=== PATIENT | female | born 1995 | race Hispanic/Latino ===

== ENCOUNTER 2020-04-24 10:44 | Emergency (ER) | payer OTHER | END 2020-04-24 11:47 | disposition home or self-care (01) | LOC: EDH 10:44 | DX: S16.1XXA Strain of muscle, fascia and tendon at neck level, initial encounter (principal); M54.5 Low back pain; V49.49XA Driver injured in collision with other motor vehicles in traffic accident, initial encounter; Y93.89 Activity, other specified; Y92.89 Other specified places as the place of occurrence of the external cause; Y99.8 Other external cause status ==

== ENCOUNTER 2020-09-28 18:50 | Emergency (ER) | payer SELFPAY ==
[2020-09-28] MEDS ORDERED: ACETAMINOPHEN EXTRA STRENGTH 500 MG TABLET ONE (19:16)
[2020-09-28] MEDS ORDERED: TRAMADOL HCL 50 MG TABLET ONE (19:16)
[2020-09-28] MEDS ORDERED: DEXAMETHASONE SOD PHOSPHATE 4 MG/ML 1ML VIAL ONE (19:28)
== END 2020-09-28 19:38 | disposition home or self-care (01) ==
LOC: EDH 18:50
DX: G56.02 Carpal tunnel syndrome, left upper limb (principal); Z98.890 Other specified postprocedural states
CPT/HCPCS: 96372; 99283; J1100

== ENCOUNTER 2020-12-30 09:15 | Emergency (ER) | payer MEDICAID ==
[2020-12-30] MEDS ORDERED: PROMETHAZINE HCL 25 MG/ML 1ML AMPULE IM ONE (09:16)
[2020-12-30 09:44] LABS: APPEARANCE,URINE Cloudy (CLEAR); BILIRUBIN,URINE Negative (NEGATIVE); COLOR,URINE Yellow (YELLOW); GLUCOSE, URINE (UA) Negative (NEGATIVE); KETONES,URINE Trace mg/dL (NEGATIVE); LEUKOCYTE ESTERASE ,URINE Large (NEGATIVE); NITRATE,URINE Negative (NEGATIVE); OCCULT BLOOD,URINE Negative (NEGATIVE); PH,URINE 7.5 (5.0-8.0); PROTEIN,URINE Negative (NEGATIVE)
[2020-12-30 09:48] LABS: BASOPHILS % (AUTO) 0.5 % (0.0-5.0); EOSINOPHILS % (AUTO) 6.2 % (0.0-8.0); HEMATOCRIT 36.4 % (36-48); LYMPHOCYTES % (AUTO) 17.4 % (21.0-51.0); MEAN CORPUSCULAR HEMOGLOBIN 28.2 pg (27.0-33.0); MEAN CORPUSCULAR HGB CONC 32.7 g/dL (32.0-36.0); MEAN CORPUSCULAR VOLUME 86.3 fL (79-99); MONOCYTES % (AUTO) 10.2 % (3.0-13.0); NEUTROPHILS % (AUTO) 65.5 % (40.0-77.0); PLATELET COUNT (AUTO) 227 K/uL (130-400); RED BLOOD CELL COUNT(AUTO) 4.22 MIL/uL (4.00-5.50); RED CELL DISTRIBUTION WIDTH 13.2 % (11.0-15.5)
[2020-12-30 09:51] LABS: CREATININE 0.7 mg/dL (0.5-1.5); POTASSIUM 3.6 mmol/L (3.5-5.1)
[2020-12-30] MEDS ORDERED: ONDANSETRON 4MG INJ ONE (09:51)
[2020-12-30] MEDS ORDERED: 0.9%NACL 1000ML 1,000 ML IV ONE ×2 (09:51→09:52)
[2020-12-30] MEDS ORDERED: ACETAMINOPHEN 500 MG TABLET ONE (09:52)
[2020-12-30 09:56] LABS: ALBUMIN 3.6 g/dL (3.5-5.0); BILIRUBIN,TOTAL 0.3 mg/dL (0.2-1.0)
[2020-12-30 10:01] LABS: BACTERIA,URINE Moderate /HPF (None Seen); RBC,URINE 0-1 /HPF (0-1)
== END 2020-12-30 11:27 | disposition home or self-care (01) ==
LOC: EDH 09:15
DX: O21.0 Mild hyperemesis gravidarum (principal); O20.8 Other hemorrhage in early pregnancy; Z79.899 Other long term (current) drug therapy; Z3A.10 10 weeks gestation of pregnancy
CPT/HCPCS: 36415; 76801; 80053; 81001; 84702; 85025; 87088; 96361; 96374; 96375; 99284; J2405; J2550; J7030 ×2

== ENCOUNTER 2023-03-11 21:42 | Emergency (ER) | payer MEDICAID ==
[~2023-03-11] VITALS: Ht 167.6 cm; Wt 75.3 kg
[2023-03-11 23:11] VITALS: BP 120/80
[2023-03-11] MEDS ORDERED: PRED20TA3 PO (23:28)
[2023-03-11] MEDS ORDERED: CETI10TA57 PO (23:28)
[2023-03-11] MEDS ORDERED: FAMO20TA8 PO (23:28)
== END 2023-03-11 23:47 | disposition home or self-care (01) ==
LOC: EDH 21:42
DX: T78.49XA Other allergy, initial encounter (principal); Z79.899 Other long term (current) drug therapy; X58.XXXA Exposure to other specified factors, initial encounter

== ENCOUNTER 2023-10-25 16:45 | Emergency (ER) | payer MEDICAID ==
[~2023-10-25] VITALS: Ht 165.1 cm; Wt 77.1 kg
[~2023-10-25 16:45] MED LIST: CETI10TA57 PO; FAMO20TA8 PO; PRED20TA3 PO
[2023-10-25 18:27] VITALS: TEMP 100
[2023-10-25] MEDS ORDERED: IBUPROFEN 600 MG TABLET PO ONE (18:30)
[2023-10-25 18:45] LABS: RAPID GROUP A STREP negative (NEGATIVE)
[2023-10-25 18:47] LABS: SARS-CoV-2, RNA, NAAT NEGATIVE SARS CoV-2 (NEGATIVE)
[2023-10-25 18:55] LABS: INFLUENZA TYPE A Negative For Type A (NEGATIVE)
[2023-10-25 18:59] LABS: INFLUENZA TYPE B Positive For Type B (NEGATIVE)
[2023-10-25] MEDS ORDERED: OSEL75 PO (19:22)
[2023-10-25] MEDS ORDERED: LORA10TA7 PO (19:22)
[2023-10-25] MEDS ORDERED: LORATADINE 10 MG TABLET PO SCH (19:30)
[2023-10-25 19:49] VITALS: BP 138/78; PULSE 78; RESP 18; O2SAT 98
== END 2023-10-25 19:56 | disposition home or self-care (01) ==
LOC: EDH 16:45
DX: T78.49XA Other allergy, initial encounter (principal); J11.1 Influenza due to unidentified influenza virus with other respiratory manifestations; J45.909 Unspecified asthma, uncomplicated; Z20.822 Contact with and (suspected) exposure to COVID-19; Z90.89 Acquired absence of other organs; Z79.899 Other long term (current) drug therapy; X58.XXXA Exposure to other specified factors, initial encounter
CPT/HCPCS: 99283; 87635; 87880; 87804 ×2; C9803